=== PATIENT | male | born 1960 | race Caucasian/White ===

== ENCOUNTER 2016-07-18 22:44 | Emergency (ER) | payer BC ==
[2016-07-18 23:01] VITALS: BP 148/94
[2016-07-18] MEDS ORDERED: Sodium Chloride 0.9% 10 ML Syringe FLUSH PRN (23:07)
--- NOTE | 2016-07-19 00:24 | EDM.PDOC ---
ED HPI GENERAL MEDICAL PROBLEM - General Chief Complaint: Flank Pain Stated Complaint: RIGHT SIDE PAIN Time Seen by Provider: 07/18/16 22:59 Source of Information: Reports: Patient, RN Notes Reviewed - History of Present Illness INITIAL COMMENTS - FREE TEXT/NARRATIVE: 55-year-old male comes in having experienced about 2 hours episode of fairly severe right upper quadrant pain with some radiation to the back. He had very mild discomfort a day or so ago but then that resolved. The pain this evening came on about 45 minutes after eating mashed potatoes and porkchops. He states he had no gravy with that. He has not had trouble with his gallbladder before. The pain does not go to the lower abdomen, to the groin or to the left abdomen. He did have some nausea but that is gone. now after arriving to the ED the pain is much less. There's been no diarrhea. He has not been constipated. No recent fever or chills Right Flank Pain Score (Numeric/FACES): 7 - Related Data Allergies Allergy/AdvReac Type Severity Reaction Status Date / Time No Known Allergies Allergy Verified 09/04/13 06:24 Home Meds: Home Meds Aspirin [Adult Low Dose Aspirin EC] 81 mg PO DAILY #30 tablet. 09/05/13 [Rx] atorvaSTATin [Lipitor] 40 mg PO BEDTIME 07/18/16 [History] Past Medical History Cardiovascular History: Reports: High Cholesterol - Past Surgical History Musculoskeletal Surgical History: Reports: Other (See Below) Other Musculoskeletal Surgeries/Procedures:: right foot amputation Social & Family History - Tobacco Use Smoking Status *Q: Never Smoker - Caffeine Use Caffeine Use: Reports: Coffee - Alcohol Use Days Per Week of Alcohol Use: 0 - Recreational Drug Use Recreational Drug Use: No ED ROS GENERAL - Review of Systems Review Of Systems: See Below Constitutional: Denies: Fever, Chills HEENT: Reports: No Symptoms Respiratory: Denies: Shortness of Breath, Pleuritic Chest Pain Cardiovascular: Denies: Chest Pain GI/Abdominal: Reports: Abdominal Pain, Nausea. Denies: Constipation, Diarrhea ( Right upper quadrant), Vomiting Musculoskeletal: Reports: Back Pain Skin: Reports: No Symptoms Neurological: Reports: No Symptoms ED EXAM, GI/ABD - Physical Exam Exam: See Below General Appearance: Alert, No Apparent Distress Throat/Mouth: Normal Inspection, Normal Oropharynx Head: Atraumatic. No: Facial Swelling Neck: Supple, Full Range of Motion Respiratory/Chest: No Respiratory Distress, Lungs Clear, Normal Breath Sounds Cardiovascular: Regular Rate, Rhythm GI/Abdominal: Soft, Tenderness (Mild tenderness right upper quadrant mild tenderness upper mid abdomen, abdomen otherwise completely soft and nontender). No: Guarding, Rebound Back Exam: No: CVA Tenderness (L), CVA Tenderness (R) Extremities: Normal Inspection, Normal Range of Motion Neurological: Alert, Oriented, No Motor/Sensory Deficits Skin Exam: Warm, Dry, Normal Color Course - Vital Signs Last Recorded V/S: Last Vital Signs Temp 97.6 F 07/18/16 22:59 Pulse 57 L 07/18/16 22:59 Resp 20 07/18/16 22:59 BP 148/94 H 07/18/16 22:59 Pulse Ox 98 07/18/16 22:59 - Orders/Labs/Meds Orders: Active Orders 24 hr Category Date Time Status Peripheral IV Care [RC] . DIRECTED Care 07/18/16 23:08 Active Peripheral IV Insertion Adult [OM.PC] Stat Oth 07/18/16 23:08 Ordered Labs: Laboratory Tests 07/18/16 07/18/16 Range/Units 23:15 23:15 WBC 9.29 H (4.23-9.07) K/mm3 RBC 4.98 (4.63-6.08) M/mm3 Hgb 15.2 (13.7-17.5) gm/L Hct 44.1 (40.1-51.0) % MCV 88.6 (79.0-92.2) fl MCH 30.5 (25.7-32.2) pg MCHC 34.5 (32.2-35.5) g/dl RDW Std Deviation 41.4 (35.1-43.9) fL Plt Count 233 (163-337) K/mm3 MPV 9.5 (9.4-12.3) fl Neut % (Auto) 69.3 H (34.0-67.9) % Lymph % (Auto) 13.6 L (21.8-53.1) % [place] % (Auto) 11.0 (5.3-12.2) % Eos % (Auto) 5.6 (0.8-7.0) Baso % (Auto) 0.4 (0.1-1.2) % Neut # (Auto) 6.44 H (1.78-5.38) K/mm3 Lymph # (Auto) 1.26 L (1.32-3.57) K/mm3 [place] # (Auto) 1.02 H (0.30-0.82) K/mm3 Eos # (Auto) 0.52 (0.04-0.54) K/mm3 Baso # (Auto) 0.04 (0.01-0.08) K/mm3 Sodium 142 (136-145) mEq/L Potassium 3.9 (3.5-5.1) mEq/L Chloride 106 (98-107) mEq/L Carbon Dioxide 24 (21-32) mEq/L Anion Gap 15.9 H (5-15) BUN 15 (7-18) mg/dL Creatinine 1.4 H (0.7-1.3) mg/dL Est Cr Clr Drug Dosing 64.99 mL/min Estimated GFR (MDRD) 53 (>60) mL/min BUN/Creatinine Ratio 10.7 L (14-18) Glucose 118 H (74-106) mg/dL Calcium 8.7 (8.5-10.1) mg/dL Total Bilirubin 0.5 (0.2-1.0) mg/dL AST 24 (15-37) U/L ALT 39 (16-63) U/L Alkaline Phosphatase 84 (46-116) U/L Total Protein 6.9 (6.4-8.2) g/dl Albumin 3.8 (3.4-5.0) g/dl Globulin 3.1 gm/dL Albumin/Globulin Ratio 1.2 (1-2) Lipase 89 (73-393) U/L Meds: Medications Discontinued Medications Generic Name Dose Route Start Last Admin Trade Name Freq PRN Reason Stop Dose Admin Sodium Chloride 10 ml 07/18/16 23:07 07/18/16 23:19 Saline Flush FLUSH 10 ml ASDIRECTED PRN Administration Keep Vein Open - Re-Assessments/Exams Free Text/Narrative Re-Assessment/Exam: 07/19/16 00:49 Labs have come back normal, his pain has resolved completely while awaiting lab work. No meds given. I have written an order for ultrasound of gallbladder to be done if patient has further symptoms or recurrent right upper quadrant pain. He wants to hold off on doing the ultrasound for now but will call and schedule for that if having further difficulty. Departure - Departure Time of Disposition: 00:23 Disposition: Home, Self-Care 01 Condition: fair Clinical Impression: Abdominal pain Qualifiers: Abdominal location: right upper quadrant Qualified Code(s): R10.11 - Right upper quadrant pain - Discharge Information Instructions: Abdominal Pain, Adult, [id number] Referrals: PCP,Not In Area [Primary Care Provider] - Forms: ED Department Discharge Additional Instructions: Clear liquids for the next 12 hours, than very careful bland diet as tolerated, try avoid all fatty food as best you can for the next several days, followup with your regular clinic provider as needed if having further symptoms or return to ED if symptoms worsening in any way. - My Orders Last 24 Hours: My Active Orders 07/18/16 23:08 Peripheral IV Care [RC] . DIRECTED Peripheral IV Insertion Adult [OM.PC] Stat - Assessment/Plan Last 24 Hours: My Active Orders 07/18/16 23:08 Peripheral IV Care [RC] . DIRECTED Peripheral IV Insertion Adult [OM.PC] Stat
== END 2016-07-19 00:35 | disposition home or self-care (01) ==
LOC: JD.ED 22:44 → SUPCPDRO 22:44 → JD.ED 07-19 00:35
DX: R10.11 Right upper quadrant pain (principal); E78.00 Pure hypercholesterolemia, unspecified; Z79.82 Long term (current) use of aspirin; Z89.431 Acquired absence of right foot
CPT/HCPCS: 36415; 80053; 83690; 85025; 99284; J7050; 99282

== ENCOUNTER 2019-06-29 11:10 | Emergency (ER) | payer BC ==
[2019-06-29 11:18] VITALS: BP 145/87; PULSE 59
[2019-06-29] MEDS ORDERED: Tenecteplase 50 MG Kit ONE (11:24)
[2019-06-29] MEDS ORDERED: Aspirin 81 MG Tab.Chew PO ONE (11:25)
[2019-06-29] MEDS ORDERED: Tenecteplase 50 MG Kit IV ONE (11:28)
[2019-06-29] MEDS ORDERED: Sodium Chloride 0.9% 1,000 ML IV SCH (11:30)
[2019-06-29] MEDS ORDERED: Nitroglycerin/D5W 25 MG/250 ML BOTTLE IV SCH (11:30)
[2019-06-29] MEDS ORDERED: Heparin Sodium 5,000 Units/ML Vial IVPUSH ONE (11:33)
[2019-06-29] MEDS ORDERED: fentaNYL 100 MCG/2 ML SDV IVPUSH PRN (11:34)
--- NOTE | 2019-06-29 11:34 | EDM.PDOC ---
ED HPI GENERAL MEDICAL PROBLEM - General Chief Complaint: Chest Pain Stated Complaint: LEFT SIDE LOWER ARM AND CHEST PAIN Time Seen by Provider: 06/29/19 11:25 Source of Information: Reports: Patient History Limitations: Reports: No Limitations - History of Present Illness INITIAL COMMENTS - FREE TEXT/NARRATIVE: 58-year-old male presents to the ED with complaints of mild central chest pressure discomfort with no radiation to his back or neck. He states when he woke up he felt discomfort in his left lateral chest wall near the axilla and some aching in both arms and forearms. 0630 hrs. this morning and with walking he can make the pressure worse. He states since it started and he is at rest his pressure and pain is decreased in intensity down to a 2 or 3 out of 10. The pain did make him feel slightly dizzy lightheaded and nauseated but he did not vomit. No pain in his neck or throat. Has a strong family history of heart disease with his father having an ID at age 39 and requiring bypass surgery. Patient states his cholesterols been within normal range. He has never been a smoker. 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 Onset: Today Onset Date: 06/29/19 Onset Time: 06:30 Duration: Hour(s):, Improving (Better than it was when he woke this morning.) Location: Reports: Chest (Central chest precordial chest and both forearms and left axilla lateral chest wall) Quality: Reports: Ache Severity: Moderate (It was intense up to a 6 out of 10 currently 2 or 3 out of 10.) Improves with: Reports: Rest Worsens with: Reports: Movement (Is worse with walking and movement.) Context: Denies: Activity, Exercise, Lifting, Sick Contact, Other Associated Symptoms: Reports: Diaphoresis (Apheresis), Nausea/Vomiting, Shortness of Breath (Nausea without vomiting), Other (Mild dizziness.). 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 (see below) (None.) - Related Data Allergies Allergy/AdvReac Type Severity Reaction Status Date / Time No Known Allergies Allergy Verified 09/04/13 06:24 Home Meds: Home Meds Aspirin [Adult Low Dose Aspirin EC] 81 mg PO DAILY #30 tablet.dr 09/05/13 [Rx] atorvaSTATin [Lipitor] 40 mg PO BEDTIME 07/18/16 [History] Past Medical History Cardiovascular History: Reports: High Cholesterol - Past Surgical History Musculoskeletal Surgical History: Reports: Other (See Below) Other Musculoskeletal Surgeries/Procedures:: right foot amputation Social & Family History - Tobacco Use Smoking Status *Q: Never Smoker - Caffeine Use Caffeine Use: Reports: Coffee - Living Situation & Occupation Living situation: Reports: 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 Denies: Wheezing, Pleuritic Chest Pain, Cough, Sputum Cardiovascular: Reports: Chest Pain, Dyspnea on Exertion, Lightheadedness. Denies: Blood Pressure Problem, Claudication, Edema, Orthopnea Endocrine: Reports: Fatigue GI/Abdominal: Reports: Nausea. Denies: Vomiting : Reports: Frequency, Other ( nocturia x 2.) Musculoskeletal: Reports: No Symptoms Skin: Reports: No Symptoms Neurological: Reports: No Symptoms Psychiatric: Reports: No Symptoms Hematologic/Lymphatic: Reports: No Symptoms Immunologic: Reports: No Symptoms ED EXAM, GENERAL - Physical Exam Exam: See Below Exam Limited By: No Limitations General Appearance: Alert, WD/WN, Mild Distress, Other (Temperature is 36.7. Heart rate is 59 and sinus. Respiratory to 16. O2 sats 97% on room air. BP 1 4587.) Eye Exam: Bilateral Eye: Normal Inspection, PERRL Throat/Mouth: Normal Inspection, Normal Lips, Normal Teeth, Normal Oropharynx Head: Atraumatic, Normocephalic Neck: Normal Inspection, Supple, Non-Tender, Full Range of Motion. No: Lymphadenopathy (L), Lymphadenopathy (R) Respiratory/Chest: No Respiratory Distress, Lungs Clear, Normal Breath Sounds, No Accessory Muscle Use, Chest Non-Tender Cardiovascular: Normal Peripheral Pulses, Regular Rate, Rhythm, No Edema, No Gallop, No Murmur, No Rub Peripheral Pulses: 2+: Posterior Tibial (L), Posterior Tibial (R), Dorsalis Pedis (L), Dorsalis Pedis (R), 3+: Carotid (L), Carotid (R) GI/Abdominal: Normal Bowel Sounds, Soft, Non-Tender, No Organomegaly, No Abnormal Bruit, No Mass, Pelvis Stable, Other (no surgical scars) (Male) Exam: No Hernia Back Exam: Normal Inspection, Full Range of Motion. No: CVA Tenderness (L), CVA Tenderness (R) Extremities: Normal Inspection, Normal Range of Motion, Non-Tender, No Pedal Edema, Normal Capillary Refill Neurological: Alert, Oriented, CN II-XII Intact, Normal Cognition Psychiatric: Normal Mood, Anxious Skin Exam: Warm, Dry, Intact, Normal Color, No Rash EKG INTERPRETATION EKG Date: 06/29/19 Time: 11:13 Rhythm: NSR Rate (Beats/Min): 60 [place]: Normal P-Wave: Present QRS: Other ST-T: Depressed (There is acute ST segment elevation in leads II, III and aVF. Segment depression noted in leads I and V2 to V4 compatible with) QT: Normal (occult changes.) EKG Interpretation Comments: Abnormal ECG. Acute inferior wall myocardial infarction. Right sided leads suggest Q waves V4 to V6 compatible with a ventricular infarct. Course - Vital Signs Last Recorded V/S: Last Vital Signs Temp 36.7 C 06/29/19 11:15 Pulse 59 L 06/29/19 11:15 Resp 16 06/29/19 11:15 BP 145/87 H 06/29/19 11:15 Pulse Ox 97 06/29/19 11:15 - Orders/Labs/Meds Orders: Active Orders 24 hr Category Date Time Status EKG 12 Lead [EKG Documentation Completion] [RC] STAT Care 06/29/19 11:33 Active Chest 1V Frontal [CR] Stat Exams 06/29/19 11:27 Taken CBC W/O DIFF,HEMOGRAM [HEME] MOTH@0700 Lab 06/30/19 07:00 Ordered CBC W/O DIFF,HEMOGRAM [HEME] MOTH@0700 Lab 07/03/19 07:00 Ordered CBC W/O DIFF,HEMOGRAM [HEME] MOTH@0700 Lab 07/07/19 07:00 Ordered CBC W/O DIFF,HEMOGRAM [HEME] MOTH@0700 Lab 07/10/19 07:00 Ordered CBC W/O DIFF,HEMOGRAM [HEME] MOTH@0700 Lab 07/14/19 07:00 Ordered CBC W/O DIFF,HEMOGRAM [HEME] MOTH@0700 Lab 07/17/19 07:00 Ordered Nitroglycerin/D5W [Nitroglycerin 25 MG/D5W 250 ML] Med 06/29/19 11:30 Active 25 mg in 250 ml IV TITRATE Sodium Chloride 0.9% [Normal Saline] 1,000 ml Med 06/29/19 11:30 Active IV ASDIRECTED fentaNYL [Sublimaze] Med 06/29/19 11:34 Active 50 mcg IVPUSH Q5M PRN Medication Orders Fentanyl (Sublimaze) 50 mcg IVPUSH Q5M PRN PRN Reason: Pain Nitroglycerin/Dextrose (Nitroglycerin 25 Mg/D5w 250 Ml) 25 mg in 250 mls @ 10 mls/hr IV TITRATE TEENA; Protocol Last Titration: 06/29/19 12:03 Dose: 6 mls/hr, 6 mls/hr Admin: 06/29/19 11:41 Dose: 5 mls/hr, 5 mls/hr Sodium Chloride (Normal Saline) 1,000 mls @ 125 mls/hr IV ASDIRECTED TEENA Last Admin: 06/29/19 11:38 Dose: 125 mls/hr Labs: Laboratory Tests 06/29/19 06/29/19 06/29/19 Range/Units 11:22 11:22 11:22 WBC 9.72 H (4.23-9.07) K/mm3 RBC 5.35 (4.63-6.08) M/mm3 Hgb 16.4 (13.7-17.5) gm/dl Hct 47.6 (40.1-51.0) % MCV 89.0 (79.0-92.2) fl MCH 30.7 (25.7-32.2) pg MCHC 34.5 (32.2-35.5) g/dl RDW Std Deviation 40.3 (35.1-43.9) fL Plt Count 283 (163-337) K/mm3 MPV 9.8 (9.4-12.3) fl Neutrophils % (Manual) 85 H (40-60) % Band Neutrophils % 0 (0-10) % Lymphocytes % (Manual) 9 L (20-40) % Atypical Lymphs % 0 % Immat Monocytes % (Man) 0 Monocytes % (Manual) 4 (2-10) % Eosinophils % (Manual) 0 L (0.8-7.0) % Basophils % (Manual) 2 H (0.2-1.2) Metamyelocytes % 0 Myelocytes % 0 Promyelocytes % 0 Blast Cells % 0 Plasma Cell % (Manual) 0 Nucleated RBCs 0.0 % Platelet Estimate Adequate RBC Morph Comment Normal PT 10.0 (9.7-12.0) SECONDS INR < 0.93 APTT 21 L (22-31) SECONDS Sodium 142 (136-145) mEq/L Potassium 3.7 (3.5-5.1) mEq/L Chloride 105 (98-107) mEq/L Carbon Dioxide 25 (21-32) mEq/L Anion Gap 15.7 H (5-15) BUN 14 (7-18) mg/dL Creatinine 1.2 (0.7-1.3) mg/dL Est Cr Clr Drug Dosing 73.21 mL/min Estimated GFR (MDRD) > 60 (>60) mL/min BUN/Creatinine Ratio 11.7 L (14-18) Glucose 158 H (74-106) mg/dL Calcium 9.3 (8.5-10.1) mg/dL Magnesium 1.8 (1.8-2.4) mg/dl Total Bilirubin 1.4 H (0.2-1.0) mg/dL AST 28 (15-37) U/L ALT 47 (16-63) U/L Alkaline Phosphatase 77 (46-116) U/L CK-MB (CK-2) 2.7 (0-3.6) ng/ml Troponin I 0.107 H* (0.00-0.056) ng/mL NT-Pro-B Natriuret Pep (0-125) pg/mL Total Protein 7.8 (6.4-8.2) g/dl Albumin 4.0 (3.4-5.0) g/dl Globulin 3.8 gm/dL Albumin/Globulin Ratio 1.1 (1-2) 05/17/20 Range/Units 11:22 WBC (4.23-9.07) K/mm3 RBC (4.63-6.08) M/mm3 Hgb (13.7-17.5) gm/dl Hct (40.1-51.0) % MCV (79.0-92.2) fl MCH (25.7-32.2) pg MCHC (32.2-35.5) g/dl RDW Std Deviation (35.1-43.9) fL Plt Count (163-337) K/mm3 MPV (9.4-12.3) fl Neutrophils % (Manual) (40-60) % Band Neutrophils % (0-10) % Lymphocytes % (Manual) (20-40) % Atypical Lymphs % % Immat Monocytes % (Man) Monocytes % (Manual) (2-10) % Eosinophils % (Manual) (0.8-7.0) % Basophils % (Manual) (0.2-1.2) Metamyelocytes % Myelocytes % Promyelocytes % Blast Cells % Plasma Cell % (Manual) Nucleated RBCs % Platelet Estimate RBC Morph Comment PT (9.7-12.0) SECONDS INR APTT (22-31) SECONDS Sodium (136-145) mEq/L Potassium (3.5-5.1) mEq/L Chloride (98-107) mEq/L Carbon Dioxide (21-32) mEq/L Anion Gap (5-15) BUN (7-18) mg/dL Creatinine (0.7-1.3) mg/dL Est Cr Clr Drug Dosing mL/min Estimated GFR (MDRD) (>60) mL/min BUN/Creatinine Ratio (14-18) Glucose (74-106) mg/dL Calcium (8.5-10.1) mg/dL Magnesium (1.8-2.4) mg/dl Total Bilirubin (0.2-1.0) mg/dL AST (15-37) U/L ALT (16-63) U/L Alkaline Phosphatase (46-116) U/L CK-MB (CK-2) (0-3.6) ng/ml Troponin I (0.00-0.056) ng/mL NT-Pro-B Natriuret Pep 39 (0-125) pg/mL Total Protein (6.4-8.2) g/dl Albumin (3.4-5.0) g/dl Globulin gm/dL Albumin/Globulin Ratio (1-2) Meds: Medications Generic Name Dose Route Start Last Admin Trade Name Freq PRN Reason Stop Dose Admin Fentanyl 50 mcg 06/29/19 11:34 Sublimaze IVPUSH Q5M PRN Pain Nitroglycerin/Dextrose 25 mg in 250 mls @ 10 mls/hr 06/29/19 11:30 06/29/19 12:03 Nitroglycerin 25 Mg/D5w 250 Ml IV 6 mls/hr TITRATE TEENA 6 mls/hr Titration Protocol Sodium Chloride 1,000 mls @ 125 mls/hr 06/29/19 11:30 06/29/19 11:38 Normal Saline IV 125 mls/hr ASDIRECTED TEENA Administration Discontinued Medications Generic Name Dose Route Start Last Admin Trade Name Freq PRN Reason Stop Dose Admin Aspirin 324 mg 06/29/19 11:25 06/29/19 11:38 Aspirin PO 06/29/19 11:26 324 mg ONETIME ONE Administration Heparin Sodium (Porcine) 5,000 units 06/29/19 11:33 06/29/19 11:47 Heparin Sodium IVPUSH 06/29/19 11:34 5,000 units ONETIME ONE Administration Heparin Sodium/Dextrose Confirm 06/29/19 11:46 06/29/19 12:12 Heparin 25,000 Units In D5w 500 Ml Administered 06/29/19 11:47 Not Given Dose 500 mls @ as directed .ROUTE .STK-MED ONE Ondansetron HCl 4 mg 06/29/19 11:35 06/29/19 11:45 Zofran IVPUSH 06/29/19 11:36 4 mg ONETIME ONE Administration Tenecteplase Confirm 06/29/19 11:24 06/29/19 11:49 Tnkase Administered 06/29/19 11:25 Not Given Dose 50 mg .ROUTE .STK-MED ONE Tenecteplase 50 mg 06/29/19 11:28 06/29/19 11:25 Tnkase IV 06/29/19 11:29 50 mg ASDIRECTED ONE Administration Protocol - Radiology Interpretation Free Text/Narrative:: 58-year-old male presents to the ED with diffuse central precordial chest discomfort into the left axilla and lateral chest wall since arising about 630 this morning. He also felt that there was pressure like a band formation around his forearms bilaterally. Associated symptoms were that of feeling slightly lightheaded dizzy and short of breath with some mild nausea. He never did vomit. He stated that he can make the chest pressure discomfort worse on exertion. Better at rest. He has never had similar symptoms. He has no known coronary artery disease. States his cholesterols always been normal and he is never been a smoker. Dates his father had an ID at age 39 requiring coronary artery bypass surgery. Currently does take a baby aspirin EGD done by's nurse reveals acute ST segment elevation in leads II , III and aVF compatible with a acute inferior wall myocardial infarction. He has reciprocal changes with ST segment depression in V2 to V4. There is also ST segment depression in leads I. Rate was 60/min and sinus. Were no contraindications to thrombolytic therapy. Patient was therefore given 50 mg of tenecteplase IV after receiving 324 mg of aspirin per ora. Will be started on heparin bolus at 5000 units and then a drip at 1000 units an hour. Chest x- ray portably to be done with routine labs. We will also given fentanyl 50 mcg IV for pain relief with Zofran 4 mg. - Re-Assessments/Exams Free Text/Narrative Re-Assessment/Exam: 06/29/19: 11:48: Through the 1 call nurse at [facility] in [place]. She put me in touch with from the department of cardiology who has accepted care. The plan will take to be to take the patient immediately to the [facility] upon arrival. He will go to the ED and Dr. Nunez excepted care there. Patient be transported that facility by ground ambulance. I am of discharge he related the pain was improved but still between a 1 and 2 mostly central chest. Blood pressure was 118/20 at the time of discharge with a heart rate of 58. He seems to be tolerating the nitro drip at 10 mcg/min and therefore the dosage will remain the same. 06/29/19 12:39 Hematology reveals a white count of 9.72 with 85% neutrophils no bands cells reported. Hemoglobin is 16.4 with hematocrit of 47.6 suggesting mild hemoconcentration. Platelet count is 283,000. PT is 10.0 with an INR of 0.93. PTT is 21 normal. Sodium is 142 with a potassium of 3.7. Chloride 105 with a bicarb of 25. Anion gap slightly elevated at 15.7 BUN is 14 with a creatinine of 1.2. GFR is greater than 60. Glucose was 158 calcium is 9.3 magnesium normal at 1.8. 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 AST is 28 with an ALT of 47 alk phos days is 77. CK-MB fraction is 2.7. Troponin I is 0.107 elevated. BNP is 39 total protein 7.8 with an albumin fraction of 4.0. Chest x-ray done portably is slightly magnified suggesting mild cardiomegaly. It also suggest mild diffuse vascular congestion pattern but I think this is from magnification from portable technique. Departure - Departure Time of Disposition: 12:25 Disposition: DC/Tfer to Acute Hospital 02 Reason for Transfer *Q: Primary PCI Indicated Condition: Good Clinical Impression: Acute myocardial infarction of inferior wall involving right ventricle Instructions: Heart Attack, [id number] Referrals: PCP,Not In Area [Primary Care Provider] - Forms: ED Department Discharge Additional Instructions: And transferred to [facility] in [place] to the ED with Dr. Nunez accepting care at that facility. Dr. Geller on-call assistant controller is also been notified Sepsis Event Note - Evaluation Sepsis Screening Result: No Definite Risk - Focused Exam Vital Signs: Vital Signs Temp Pulse Resp BP Pulse Ox 06/29/19 11:15 36.7 C 59 L 16 145/87 H 97 Date Exam was Performed: 06/29/19 Time Exam was Performed: 12:33 - My Orders Last 24 Hours: My Active Orders 06/29/19 11:27 Chest 1V Frontal [CR] Stat 06/29/19 11:30 Nitroglycerin/D5W [Nitroglycerin 25 MG/D5W 250 ML] 25 mg in 250 ml IV TITRATE Sodium Chloride 0.9% [Normal Saline] 1,000 ml IV ASDIRECTED 06/29/19 11:33 EKG 12 Lead [EKG Documentation Completion] [RC] STAT 06/29/19 11:34 fentaNYL [Sublimaze] 50 mcg IVPUSH Q5M PRN 06/30/19 07:00 CBC W/O DIFF,HEMOGRAM [HEME] MOTH@69907/03/19 07:00 CBC W/O DIFF,HEMOGRAM [HEME] MOTH@00 07/07/19 07:00 CBC W/O DIFF,HEMOGRAM [HEME] MOTH@69907/10/19 07:00 CBC W/O DIFF,HEMOGRAM [HEME] MOTH@69907/14/19 07:00 CBC W/O DIFF,HEMOGRAM [HEME] MOTH@69907/17/19 07:00 CBC W/O DIFF,HEMOGRAM [HEME] MOTH@699 - Assessment/Plan Last 24 Hours: My Active Orders 06/29/19 11:27 Chest 1V Frontal [CR] Stat 06/29/19 11:30 Nitroglycerin/D5W [Nitroglycerin 25 MG/D5W 250 ML] 25 mg in 250 ml IV TITRATE Sodium Chloride 0.9% [Normal Saline] 1,000 ml IV ASDIRECTED 06/29/19 11:33 EKG 12 Lead [EKG Documentation Completion] [RC] STAT 06/29/19 11:34 fentaNYL [Sublimaze] 50 mcg IVPUSH Q5M PRN 06/30/19 07:00 CBC W/O DIFF,HEMOGRAM [HEME] MOTH@69907/03/19 07:00 CBC W/O DIFF,HEMOGRAM [HEME] MOTH@69907/07/19 07:00 CBC W/O DIFF,HEMOGRAM [HEME] MOTH@69907/10/19 07:00 CBC W/O DIFF,HEMOGRAM [HEME] MOTH@69907/14/19 07:00 CBC W/O DIFF,HEMOGRAM [HEME] MOTH@69907/17/19 07:00 CBC W/O DIFF,HEMOGRAM [HEME] MOTH@699
[2019-06-29] MEDS ORDERED: Ondansetron 4 MG/2 ML SDV IVPUSH ONE (11:35)
[2019-06-29] MEDS ORDERED: Heparin Sodium/D5W 500 ML ONE (11:46)
--- NOTE | 2019-06-30 09:03 | CR ---
Chest: Portable view of the chest was obtained. Comparison: Prior chest x-ray of 09/04/13. Heart size and mediastinum are within normal limits. Lungs are clear with no acute parenchymal change. Bony structures are grossly intact. Impression: 1. Nothing acute is seen on portable chest x-ray. Diagnostic code #1 This report was dictated in MDT
== END 2019-06-29 12:20 ==
LOC: JD.ED 11:10
DX: I21.19 ST elevation (STEMI) myocardial infarction involving other coronary artery of inferior wall (principal); E78.00 Pure hypercholesterolemia, unspecified; Z79.82 Long term (current) use of aspirin; Z79.899 Other long term (current) drug therapy
CPT/HCPCS: 36415; 71045; 80053; 82553; 83735; 83880; 84484; 85007; 85027; 85610; 85730; 93005; 96365; 96375; 99285; A9270; J1644; J2405; J3101; J3490; J7030; 93010

== ENCOUNTER 2021-05-20 08:20 | Emergency (ER) | payer BC ==
[2021-05-20 08:41] VITALS: BP 159/88; PULSE 53
[2021-05-20] MEDS ORDERED: Ondansetron 4 MG/2 ML SDV IVPUSH ONE (08:50)
[2021-05-20] MEDS ORDERED: Ketorolac 15 MG/ML SDV IVPUSH ONE (09:03)
== END 2021-05-20 10:34 | disposition home or self-care (01) ==
LOC: JD.ED 08:20
DX: N13.2 Hydronephrosis with renal and ureteral calculous obstruction (principal); E78.00 Pure hypercholesterolemia, unspecified; Z79.82 Long term (current) use of aspirin; Z79.899 Other long term (current) drug therapy; Z86.16 Personal history of COVID-19
CPT/HCPCS: 36415; 74176; 80053; 81001; 83690; 85025; 96374; 96375; 99284; J1885; J2405